=== PATIENT | male | born 1965 | race Hispanic/Latino ===

== ENCOUNTER 2023-12-23 10:00 | Day surgery (SDC) | payer MEDICARE, MEDICAID, SELFPAY ==
--- NOTE | 2023-12-22 08:21 | EKG_ITS ---
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
[2023-12-22 11:22] VITALS: BMI 43.0
[2023-12-22 12:41] LABS: Basophils # (Auto) 0.1 Thou/mm3 (0.0-0.2); Basophils % (Auto) 1 % (0-2.5); Eosinophils # (Auto) 0.3 Thou/mm3 (0.0-0.5); Eosinophils % (Auto) 4 % (0-10); Hemoglobin 10.2 g/dL (13.5-16.0); Immature Granulocytes % (Auto) 1 % (0-0); Immature Granulocytes Auto 0.05 Thou/mm3 (0.00-0.00); Lymphocytes # (Auto) 1.4 Thou/mm3 (1.0-4.8); Lymphocytes % (Auto) 17 % (10-50); Mean Corpuscular HGB Conc 32.9 g/dl (31.0-37.0); Mean Corpuscular Volume 94 fL (80-100); Monocytes # (Auto) 0.9 Thou/mm3 (0.0-0.8); Monocytes % (Auto) 10 % (0-12); Neutrophils # (Auto) 5.6 Thou/mm3 (1.8-7.7); Neutrophils % (Auto) 68 % (37-80); Nucleated Red Blood Cell % 0 /100 WBC (0); Platelet Count 231 Thou/mm3 (140-440); RDW Standard Deviation 45.9 fL (35.1-43.9); Red Blood Count 3.29 Miln/mm3 (4.50-5.90); White Blood Count 8.3 Thou/mm3 (3.8-10.6)
[2023-12-22 13:00] LABS: Alanine Aminotransferase 63 U/L (10-49); Albumin, Serum 4.8 gm/dL (3.5-5.0); Albumin/Globulin Ratio 1.5 (1.2-2.2); Alkaline Phosphatase 296 U/L (46-116); Anion Gap 8 (7-16); Aspartate Amino Transferase 39 U/L (0-34); BUN/Creatinine Ratio 10 Ratio (12-20); Bilirubin,Total 0.3 mg/dL (0.3-1.2); Blood Urea Nitrogen 82 mg/dL (9-23); Calcium 8.7 mg/dL (8.3-10.6); Calcium (Corrected) 8.7 mg/dL (8.5-10.1); Carbon Dioxide 26.5 mMol/L (20.0-31.0); Chloride 107 mMol/L (98-107); Creatinine (Component) 8.1 mg/dL (0.6-1.3); Estimated Creatinine Clearance 11.8 mL/min (>60); Globulin 3.1 gm/dL (2.3-3.5); Glucose 119 mg/dL (74-106); Osmolality,Calculated 306 (275-295); Sodium 141 mMol/L (136-145); Total Protein 7.9 gm/dL (5.7-8.2); eGFR 7 See Note
[2023-12-22 13:06] LABS: COVID-19 Antigen (In-House) Negative (Negative)
[2023-12-23] VITALS (10 sets, daily range): BP systolic 102–152; BP diastolic 52–73; PULSE 48–62; RESP 12–16; TEMP 36.4–36.8; O2SAT 98–100; BMI 43.2
[2023-12-23] MEDS: SODIUM CHLORIDE 0.9% 500 ML 500 ML 20 ML IV (10:55)
[2023-12-23 11:09] LABS: Potassium 5.4 mMol/L (3.4-5.1)
--- NOTE | 2023-12-23 12:46 | SUR.PHASEI ---
1246: Pt. AAOx4, vitals stable, breathing unlabored, no complaint of pain or nausea, dressing to ABD CDI, no active bleed noted, report received from Dafne DESHPANDE and Jace HOYOS.
--- NOTE | 2023-12-23 12:48 | ESOP_ITS ---
Date of Procedure 12/23/23 Pre Op Diagnosis End-stage renal disease requiring dialysis Post Op Diagnosis End-stage renal disease requiring dialysis Procedure Laparoscopic assisted placement of peritoneal dialysis catheter with omentopexy Findings There are some minimal adhesions in the right upper quadrant of the abdomen. Large amount of omentum in the pelvis. Procedure Description Patient brought into the operating room in supine position. After administration of general endotracheal anesthesia, patient's abdomen was prepped and draped in standard surgical manner. An approximately 5 mm incision was made in right upper quadrant and Veress needle was inserted. Pneumoperitoneum was obtained up to 15 mmHg and the Veress needle was removed. A 5 mm trocar was placed and laparoscopic camera was inserted. Under direct visualization a laparoscopic camera a 5 mm trocar was placed in left side of the abdomen, this would be used is the exit site of the catheter. The abdomen was inspected. There were small amount of adhesions in the right upper and mid abdomen from previous operation. There was large amount of omentum in the pelvis. Omentum was retracted cephalad and to the left upper quadrant and omentopexy was performed with 0 Ethibond suture using Endo closure device. An approximately 3 cm incision was made to the left of the umbilicus and dissection was carried subcutaneous tissue. A 10 mm trocar was placed through this incision and the peritoneal dialysis catheter was placed through this trocar and advanced into patient's pelvis, the trocar was then removed. The curved end of the catheter was positioned in patient's pelvis. Using an Endo closure device a suture was placed around the catheter in suprapubic region to hold the catheter in place and prevent potential displacement of the catheter in the future. The proximal cuff of the catheter was placed posterior to anterior abdominal fascia in a pursestring suture using 0 Ethibond placed around the catheter to hold the catheter in place and prevent leakage of fluid around the catheter site. Using the tunneling device a tunnel was created in subcutaneous soft tissue and the catheter was placed in soft tissue tunnel and brought out of left abdominal trocar site. The catheter was flushed with heparinized saline, fluid was being flushed and aspirated without difficulty. Pneumoperitoneum was evacuated and trocars removed. The incisions closed 4-0 Monocryl in subcuticular fashion. Instruments, needles and sponge counts were reported to be correct ?2. Patient tolerated the procedure well, was extubated, breathing spontaneously and without difficulty and was transferred to postanesthesia care in stable condition. Anesthesia GETA and local Pathology / specimen None Estimated Blood Loss 2 Condition Stable Disposition PACU Surgeon Mendel Veras MD Surgical Staff Operation Date: 12/23/23 12:30 Case Staff BOUFFANT CURTAIN MACHINE TENDER: Jace Tinajero RN First Assistant: Alla Avendano
[2023-12-23] MEDS: fentaNYL CIT INJ 50 mCg/ML AMP 2ML 25 MCG IV ×2 (13:09→13:30)
[2023-12-23] MEDS: ACETAMINOPHEN IVPB 1,000 MG/100 ML VIAL 250 MG IV (13:31)
--- NOTE | 2023-12-23 14:25 | SUR.PHASEII ---
1425: Pt. AAOx4, vitals stable, breathing unlabored, no complaint of pain or nausea, dressing to ABD CDI, no active bleed noted, pt. tolerated sips of water well, pt. ambulated to wheelchair with steady gait and no assist, no complications. Gave discharge instructions to the pt. and his ride, both verbalized understanding and had no further questions.
== END 2023-12-23 14:25 | disposition home or self-care (01) ==
PROVIDERS: Anesthesiology; PCP Internal Medicine; Referring Provider Surgery; Visit Provider Surgery
PROC: 0WHG43Z Insertion of Infusion Device into Peritoneal Cavity, Percutaneous Endoscopic Approach (ICD-10-PCS; CPT 49324; principal; 2023-12-23 12:30)
DX: E11.22 Type 2 diabetes mellitus with diabetic chronic kidney disease (principal); I12.0 Hypertensive chronic kidney disease with stage 5 chronic kidney disease or end stage renal disease; N18.6 End stage renal disease; Z01.810 Encounter for preprocedural cardiovascular examination; Z99.2 Dependence on renal dialysis; E78.00 Pure hypercholesterolemia, unspecified; Z20.822 Contact with and (suspected) exposure to COVID-19; Z01.812 Encounter for preprocedural laboratory examination
CPT/HCPCS: 49324; 49326; 36415; 80053; 84132; 85025; 87811; 93005; A4649; C1750; J0131; J0690; J1100; J1643; J2405; J2704; J2710; J3010; J3490; J7040; A9270